=== PATIENT | female | born 1985 | race Two or more races ===

== ENCOUNTER 2018-06-05 02:50 | Emergency (ER) | payer SELFPAY ==
--- NOTE | 2018-06-05 04:15 | ED PDOC ---
HPI: Psych/Substance Abuse Time Seen by Provider: 06/05/18 02:54 Chief Complaint (Nursing): Alcohol Ingestion Chief Complaint (Provider): Alcohol Ingestion History Per: Patient, Other (Police) Additional Complaint(s): 32 years old female brought in by EMS for alcohol abuse. Police state she was drinking at a bar and noted to be heavily intoxicated. Patient has unsteady gait and admits to drinking and cocaine use tonight. She denies suicidal or homicidal thoughts or injuries. Patient offers no complaints. PMD: None provided Past Medical History Reviewed: Historical Data, Nursing Documentation, Vital Signs Vital Signs: Last Vital Signs Temp 98.6 F 06/05/18 02:59 Pulse 129 H 06/05/18 02:59 Resp 24 06/05/18 02:59 BP 130/87 06/05/18 02:59 Pulse Ox 98 06/05/18 02:59 - Medical History PMH: No Chronic Diseases - Surgical History Surgical History: No Surg Hx - Family History Family History: States: Unknown Family Hx - Social History Alcohol: Social Drugs: Cocaine - Allergies Allergies/Adverse Reactions: Allergies Allergy/AdvReac Type Severity Reaction Status Date / Time Penicillins Allergy RASH Verified 06/05/18 02:58 Review of Systems ROS Statement: Except As Marked, All Systems Reviewed And Found Negative Psych: Negative for: Suicidal ideation (or homicidal) Physical Exam - Reviewed Nursing Documentation Reviewed: Yes Vital Signs Reviewed: Yes - Physical Exam Appears: Positive for: No Acute Distress (Intoxicated appearing) Head Exam: Positive for: ATRAUMATIC, NORMOCEPHALIC Skin: Positive for: Normal Color, Warm, Dry Eye Exam: Positive for: Other (Conjunctival erythema) ENT: Positive for: Normal ENT Inspection Neck: Positive for: Normal, Painless ROM, Supple Cardiovascular/Chest: Positive for: Tachycardia. Negative for: Murmur Respiratory: Positive for: Normal Breath Sounds. Negative for: Respiratory Distress Gastrointestinal/Abdominal: Positive for: Normal Exam, Soft. Negative for: Tenderness Back: Positive for: Normal Inspection. Negative for: L CVA Tenderness, R CVA Tenderness Extremity: Positive for: Normal ROM. Negative for: Pedal Edema, Deformity Neurological/Psych: Positive for: Awake, Alert, Gait (unsteady), Other (Slurred speech) - ECG O2 Sat by Pulse Oximetry: 98 (RA) Pulse Ox Interpretation: Normal Medical Decision Making Medical Decision Making: Time: 0400 A/P: alcohol and drug abuse without signs of injury --Will monitor for clinical sobriety 0630 --Patient is clinically sober at this time, HR improved --Patient walking steadily, alert and oriented, well appearing, able to ambulate independently, stable for discharge ScribeAttestation: Documented byKamila Nelson, acting as a scribe for Zain Salas MD. Provider ScribeAttestation: All medical record entries made by the Scribe were at my direction and personally dictated by me. I have reviewed the chart and agree that the record accurately reflects my personal performance of the history, physical exam, medical decision making, and the department course for this patient. I have also personally directed, reviewed, and agree with the discharge instructions and disposition. Disposition - Clinical Impression Clinical Impression: Alcohol abuse, Cocaine abuse - Disposition Referrals: Alcoholics Anonymous [Outside] Disposition: Routine/Home Disposition Time: 06:30 Condition: IMPROVED Instructions: Alcohol Use - When Is Drinking a Problem?, Cocaine Use Disorder Forms: Yillio (Georgian)
[2018-06-05 06:53] VITALS: BP 122/80; PULSE 103; RESP 20; TEMP 98.2
[2018-06-05 21:19] VITALS: O2SAT 98
== END 2018-06-05 06:53 | disposition home or self-care (01) ==
LOC: H.ER 02:50
DX: F10.10 Alcohol abuse, uncomplicated (principal); F14.10 Cocaine abuse, uncomplicated; Z88.0 Allergy status to penicillin